=== PATIENT | female | born 1960 | race Caucasian/White ===

== ENCOUNTER 2017-05-28 14:20 | Day surgery (SDC) | payer BC ==
[2017-05-28] MEDS ORDERED: PROPOFOL 40 ML (15:39)
[2017-05-28] MEDS ORDERED: PROPOFOL 20 ML (15:49)
[2017-05-28] MEDS ORDERED: GLYCOPYRROLATE 0.4 MG INJ (16:00)
== END 2017-05-28 18:42 | disposition home or self-care (01) ==
LOC: GIL 14:20
DX: D12.6 Benign neoplasm of colon, unspecified (principal); K44.9 Diaphragmatic hernia without obstruction or gangrene; K21.9 Gastro-esophageal reflux disease without esophagitis; K29.60 Other gastritis without bleeding; K64.8 Other hemorrhoids; E66.9 Obesity, unspecified; Z68.33 Body mass index [BMI] 33.0-33.9, adult
CPT/HCPCS: 43239; 87081; 88305